=== PATIENT | female | born 1970 | race Caucasian/White ===

== ENCOUNTER 2025-04-18 02:18 | Emergency (ER) | payer BC, OTHER ==
[~2025-04-18] VITALS: Ht 154.9 cm; Wt 68.3 kg
[2025-04-18] MEDS ORDERED: ACE3T PO (02:36)
--- NOTE | 2025-04-18 02:38 | ED.PDOC ---
Eye-HPI HPI Comments 54 year old female presents to ER with complaints of left ear pain x 2 days. Patient states she was bit by an unknown type of insect on her left upper arm 2 days ago and has since been experiencing intermittent "left lower earlobe pain" and intermittent left sided headache. She reports 10/10 left lower earlobe pain, denying any current headache/any other pain. Patient presents to ER ambulatory on arrival, alert and oriented x 4, with steady gait, in no distress. Denies fever, body aches, chills, n/v, numbness/tingling, earache, dizziness or any further symptoms/complaints Time Seen by MD: 02:21 Reviewed Notes: Nurses Notes, Medications, Allergies Home Meds Active Scripts Acetaminophen W/ Codeine (Tylenol W/Cod #3) 1 Tab Tb, 1 TAB PO Q6HPRN, #10 TAB 0 Refills Prov:DANIELLE DEL TORO 04/18/25 Information Source: Patient Past Medical History PAST MEDICAL HISTORY: Denies Surgical History: Denies all surgeries HAND TIER History: No Pertinent HAND TIER History Family History Family History: Unknown Social History Smoker: Non-Smoker Alcohol: Denies ETOH Use Drugs: Denies Drug Use Lives In: Home Constitutional: denies: chills, diaphoresis, fatigue, fever, malaise, sweats, weakness, others EENTM: denies: blurred vision, double vision, ear bleeding, ear discharge, ear drainage, ear pain, ear ringing, eye pain, eye redness, hearing loss, mouth pain, mouth swelling, nasal discharge, nose bleeding, nose congestion, nose pain, photophobia, tearing, throat pain, throat swelling, voice changes, others Respiratory: denies: cough, hemoptysis, orthopnea, SOB at rest, shortness of breath, SOB with excertion, stridor, wheezing, others Cardiovascular: denies: chest pain, dizzy spells, diaphoresis, Dyspnea on exertion, edema, irregular heart beat, left arm pain, lightheadedness, palpitations, PND, syncope, others Gastrointestinal: denies: abdomen distended, abdominal pain, blood streaked bowels, constipated, diarrhea, dysphagia, difficulty swallowing, hematemesis, melena, nausea, poor appetite, poor fluid intake, rectal bleeding, rectal pain, vomiting, others Genitourinary: denies: abnormal vagina bleeding, burning, dyspareunia, dysuria, flank pain, frequency, hematuria, incontinence, pain, , vagina discharge, urgency, others Neurological: reports: others (As stated in HPI) Musculoskeletal: denies: back pain, gout, joint pain, joint swelling, muscle pain, muscle stiffness, neck pain, others Integumetry: reports: others (As stated in HPI) Allergic/Immunocompromised: denies: Difficulty Healing, Frequent Infections, Hives, Itching, others Hematologic/Lymphatic: denies: anemia, blood clots, easy bleeding, easy bruising, swollen glands, others Endocrine: denies: excessive hunger, excessive sweating, excessive thirst, excessive urination, flushing, intolerance to cold, intolerance to heat, unexplained weight gain, unexplained weight loss, others Psychiatric: denies: anxiety, bipolar disorder, depression, hopeless, panic disorder, schizophrenia, sleepless, suicidal, others Physical Exam General Appearance: No Apparent Distress HEENT: Normal ENT Inspection, PERRL/EOMI, Pharynx Normal, TMs Normal (No TTP/skin changes to left earlobe noted. Normal bilateral ear exam) Neck: Full Range of Motion, Non-Tender, Normal Respiratory: Chest Non-Tender, Lungs Clear, No Accessory Muscle Use, No Respira tory Distress, Normal Breath Sounds Cardiovascular: No Murmur, No Gallop, Regular Rate/Rhythm Breast Exam: Deferred Gastrointestinal: NOT DONE Genitalia: Deferred Pelvic: Deferred Rectal: Deferred Extremities: Normal capillary refill, Normal range of motion Neurologic: Alert, field research assistant II-XII nml as Tested, No Motor Deficits, Normal Affect, Normal Mood, No Sensory Deficits Cerebellar Function: Normal Reflexes: Normal Skin: Dry, Normal Color, Warm, Other (2 healing insect bites noted to left upper arm without any drainage/signs of infection noted) Lymphatic: No Adenopathy Was a procedure done? Was a procedure done?: No Sedation Sedation?: No EENT DIFF Eye: N/A Ear: Abrasion, Cerumen Impaction, Foreign Body, Otitis Media, Perforation, Other (cellulitis) X-Ray, Labs, Meds, VS Vital Signs Date Time Temp Pulse Resp B/P (MAP) Pulse Ox O2 Delivery O2 Flow Rate FiO2 04/18/25 02:25 98.7 77 16 149/97 (114) 95 98.7 Tylenol #3 one tablet p.o. ordered Zofran 4 mg p.o. ordered Patient had improvement in symptoms and in no distress prior to discharge Advised to drink plenty of fluids Advised to follow up with PCP in 1-2 days Patient alert and oriented x4 prior to discharge. Patient verbalized understanding and agreeable with current plan of care Advised to return to ER immediately if symptoms worsen Time of 1ST Reevaluation: 02:21 Reevaluation 1ST: N/A Patient Education/Counseling: Diagnosis, Treatment, Prognosis, Need For Follow Up Family Education/Counseling: No Family Present SEPSIS Sepsis Screen Physician Orders Acetaminophen/Codeine Tablet (Tylenol W/ (04/18/25 02:45) Ondansetron Po (Zofran Po) (04/18/25 02:45) Vital Signs Date Time Temp Pulse Resp B/P (MAP) Pulse Ox O2 Delivery O2 Flow Rate FiO2 04/18/25 02:25 98.7 77 16 149/97 (114) 95 98.7 Departure 1 Departure Time of Disposition: 02:32 Impression: Primary Impression: Insect bite of left arm Qualified Codes: S40.862A - Insect bite (nonvenomous) of left upper arm, initial encounter; W57.XXXA - Bitten or stung by nonvenomous insect and other nonvenomous arthropods, initial encounter Additional Impression: Pain of left earlobe Disposition: 01 HOME / SELF CARE / HOMELESS Condition: Stable e-Prescriptions Acetaminophen W/ Codeine (Tylenol W/Cod #3) 1 Tab Tb 1 TAB PO Q6HPRN, #10 TAB 0 Refills Prov: DANIELLE DEL TORO 04/18/25 Discharged With: Friend Critical Care Note Critical Care Time?: No Stability Stability form required: No Heart Score Heart Score: Heart Score Response (Comments) Value History N/A 0 EKG N/A 0 Age N/A 0 Risk Factors N/A 0 Troponin N/A 0 Total 0 DANIELLE DEL TORO Apr 18, 2025 02:38
[2025-04-18 02:45] VITALS: BP 149/97; PULSE 77; RESP 16; TEMP 98.7; O2SAT 95
[2025-04-18] MEDS: ACETAMINOPHEN/CODEINE#3 (300/30mg) TAB PO ONE (02:47)
[2025-04-18] MEDS: ONDANSETRON ODT 4 MG TAB PO ONE (02:47)
== END 2025-04-18 02:58 | disposition home or self-care (01) ==
LOC: ER 02:18
DX: S40.862A Insect bite (nonvenomous) of left upper arm, initial encounter (principal); H92.02 Otalgia, left ear; W57.XXXA Bitten or stung by nonvenomous insect and other nonvenomous arthropods, initial encounter; Y93.89 Activity, other specified; Y92.89 Other specified places as the place of occurrence of the external cause; Y99.8 Other external cause status
CPT/HCPCS: 99283; Q0162